=== PATIENT | female | born 1945 | race Caucasian/White ===

== ENCOUNTER 2017-05-21 08:39 | Emergency (ER) | payer OTHER ==
[~2017-05-21] VITALS: Wt 88.5 kg
[~2017-05-21 08:39] MED LIST: ASPIRIN CHEWABL81 MG PO; COREG CR80 MG PO; CRESTOR10 M1 PO; ESTER-C 1,0001 EACH PO; ISOSORBIDE MON120 MG PO; LISINOPRIL AND1 TA2 PO; PANTOPRAZOLE SO40 MG PO; POTASSIUM CHLO20 ME4 PO
== END 2017-05-21 09:36 | disposition home or self-care (01) ==
LOC: ED 08:39
DX: S52.502A Unspecified fracture of the lower end of left radius, initial encounter for closed fracture (principal); S52.602A Unspecified fracture of lower end of left ulna, initial encounter for closed fracture; R03.0 Elevated blood-pressure reading, without diagnosis of hypertension; Z79.82 Long term (current) use of aspirin; W01.0XXA Fall on same level from slipping, tripping and stumbling without subsequent striking against object, initial encounter; Y93.89 Activity, other specified; Y92.89 Other specified places as the place of occurrence of the external cause; Y99.8 Other external cause status

== ENCOUNTER → 2017-05-24 | Outpatient (CLI) | payer OTHER | END | disposition home or self-care (01) | LOC: ORTHO 01:22 | DX: S52.615A Nondisplaced fracture of left ulna styloid process, initial encounter for closed fracture (principal); X58.XXXA Exposure to other specified factors, initial encounter; Y93.89 Activity, other specified; Y92.89 Other specified places as the place of occurrence of the external cause; Y99.8 Other external cause status ==

== ENCOUNTER → 2017-05-31 | Outpatient (CLI) | payer OTHER ==
[2017-05-31 13:24] LABS: BILIRUBIN NEGATIVE (NEGATIVE); BLOOD 1+ (NEGATIVE); CLARITY CLEAR (CLEAR); COLOR YELLOW (YELLOW); GLUCOSE NEGATIVE (NEGATIVE); KETONE NEGATIVE (NEGATIVE); LEUKO ESTERASE NEGATIVE (NEGATIVE); NITRITE NEGATIVE (NEGATIVE); SPECIFIC GRAVITY <= 1.005 (1.005-1.030); UROBILINOGEN 0.2 E.U./dl (0.2-1.0)
[2017-05-31 13:46] LABS: BACTERIA 2+; EPITHELIAL CELLS 0-2; WBC 0-2 wbc/hpf (0-5)
== END | disposition home or self-care (01) ==
LOC: ORTHO 03:46 → LAB 03:46 → ORTHO 19:59
PROVIDERS: Internal Medicine
DX: R35.0 Frequency of micturition (principal)

== ENCOUNTER → 2017-06-01 | Outpatient (CLI) | payer OTHER ==
[2017-06-01 08:30] LABS: BASO % 0.5 % (0.0-1.0); EOS # 0.2 10*3/uL (0.0-0.4); EOS % 2.3 % (1.0-4.0); HEMATOCRIT 36.6 % (37.0-47.0); HEMOGLOBIN 12.1 g/dl (12.0-16.0); LYMPH # 1.5 10*3/uL (1.3-4.4); LYMPH % 18.2 % (27.0-41.0); MEAN CELL VOLUME 90.4 fl (81.0-99.0); MEAN CORPUSCULAR HGB 29.9 pg (27.0-31.0); MEAN CORPUSCULAR HGB CONC 33.1 g/dl (33.0-37.0); MEAN PLATELET VOLUME 9.8 fl (9.6-12.3); MONO # 0.9 10*3/uL (0.1-1.0); MONO % 10.9 % (3.0-9.0); NEUT # 5.6 10*3/uL (2.3-7.9); NEUT % 67.7 % (47.0-73.0); PLATELET COUNT AUTOMATED 280 10*3/uL (130-400); RED BLOOD COUNT 4.05 10*6/uL (4.10-5.10); RED CELL DISTRI WIDTH 12.3 % (0-14.5); WHITE BLOOD COUNT 8.3 10*3/uL (4.8-10.8)
[2017-06-01 09:06] LABS: ALBUMIN 3.2 gm/dl (3.1-4.5); CREATININE 1.19 mg/dL (0.55-1.02); TOTAL PROTEIN 7.2 gm/dL (6.4-8.2)
== END | disposition home or self-care (01) ==
LOC: RAD 02:50 → ORTHO 02:50 → LAB 02:50 → ORTHO 15:06
PROVIDERS: Surgery
DX: Z01.818 Encounter for other preprocedural examination (principal); I51.7 Cardiomegaly; S52.502D Unspecified fracture of the lower end of left radius, subsequent encounter for closed fracture with routine healing; C50.312 Malignant neoplasm of lower-inner quadrant of left female breast; Z17.0 Estrogen receptor positive status [ER+]; X58.XXXD Exposure to other specified factors, subsequent encounter

== ENCOUNTER → 2017-06-06 | Outpatient (CLI) | payer OTHER | END | disposition home or self-care (01) | LOC: ORTHO 03:04 | DX: S52.502D Unspecified fracture of the lower end of left radius, subsequent encounter for closed fracture with routine healing (principal); X58.XXXD Exposure to other specified factors, subsequent encounter ==

== ENCOUNTER → 2017-07-04 | Outpatient (CLI) | payer OTHER | END | disposition home or self-care (01) | LOC: ORTHO 03:49 | DX: S52.502D Unspecified fracture of the lower end of left radius, subsequent encounter for closed fracture with routine healing (principal); X58.XXXD Exposure to other specified factors, subsequent encounter ==

== ENCOUNTER → 2017-07-27 | Outpatient (CLI) | payer OTHER | END | disposition home or self-care (01) | LOC: ORTHO 02:04 | DX: S52.92XD Unspecified fracture of left forearm, subsequent encounter for closed fracture with routine healing (principal); X58.XXXD Exposure to other specified factors, subsequent encounter ==

== ENCOUNTER → 2017-08-26 | Outpatient (CLI) | payer OTHER | END | disposition home or self-care (01) | LOC: ORTHO 01:57 | DX: S52.592D Other fractures of lower end of left radius, subsequent encounter for closed fracture with routine healing (principal); X58.XXXD Exposure to other specified factors, subsequent encounter ==

== ENCOUNTER → 2017-10-05 | Outpatient (CLI) | payer OTHER | END | disposition home or self-care (01) | LOC: ORTHO 02:17 | DX: Z47.89 Encounter for other orthopedic aftercare (principal); S52.502D Unspecified fracture of the lower end of left radius, subsequent encounter for closed fracture with routine healing; X58.XXXD Exposure to other specified factors, subsequent encounter ==

== ENCOUNTER → 2017-11-01 | Outpatient (CLI) | payer OTHER ==
[2017-11-01 14:22] LABS: POTASSIUM 3.7 mmol/L (3.5-5.1)
== END | disposition home or self-care (01) ==
LOC: LAB 12:34
PROVIDERS: Internal Medicine Cardiovascular Disease
DX: I47.2 Ventricular tachycardia (principal)

== ENCOUNTER → 2017-12-01 | Outpatient (CLI) | payer OTHER | END | disposition home or self-care (01) | LOC: LAB 09:03 | DX: E83.42 Hypomagnesemia (principal) ==

== ENCOUNTER → 2017-12-15 | Outpatient (CLI) | payer OTHER | END | disposition home or self-care (01) | LOC: LAB 09:07 | DX: E83.42 Hypomagnesemia (principal) ==

== ENCOUNTER 2018-04-28 08:53 | Emergency (ER) | payer OTHER ==
[~2018-04-28] VITALS: Ht 170.1 cm; Wt 74.8 kg
== END 2018-04-28 09:40 | disposition expired ==
LOC: ED 08:53
DX: I46.9 Cardiac arrest, cause unspecified (principal); Z91.048 Other nonmedicinal substance allergy status; Z88.1 Allergy status to other antibiotic agents; Z90.710 Acquired absence of both cervix and uterus; Z90.49 Acquired absence of other specified parts of digestive tract